=== PATIENT | male | born 1950 | race Caucasian/White ===

== ENCOUNTER → 2019-01-25 | Outpatient (CLI) | payer MEDICARE, OTHER ==
[~2019-01-25] MED LIST: MULT-974 PO; SIMV10TA3 PO; TRM50T PO; UBID100C17 PO
--- NOTE | 2019-01-25 16:16 | Diagnostic Imaging Report ---
INDICATION: Left knee pain. COMPARISON: None. FINDINGS: Three radiographic views of the left knee were obtained and show no radiographic evidence of acute fracture or dislocation. Osseous structures are intact. Joint spaces are maintained. There are mild osteoarthritic changes consisting of joint space narrowing with osteophyte formations, greatest involving the medial tibiofemoral compartment and patellar trochlear joint. Small suprapatellar joint effusion is also noted. No unexpected radiopaque foreign bodies are seen. IMPRESSION: 1. Small suprapatellar joint effusion with mild osteoarthritic changes, but no evidence of acute fracture or dislocation of the left knee. Dictated by: Dictated on workstation # [id number]
== END ==
LOC: RAD 14:29
PROVIDERS: ATTEND Nurse Practitioner Family
DX: M17.12 Unilateral primary osteoarthritis, left knee (principal)
CPT/HCPCS: 73562

== ENCOUNTER → 2019-03-02 | Outpatient (CLI) | payer MEDICARE, OTHER ==
--- NOTE | 2019-03-02 13:00 | Diagnostic Imaging Report ---
EXAMINATION: Lumbar spine at 11:17 a.m. INDICATION: Back pain. AP, lateral, and spot lateral views were obtained. There are no prior studies available for comparison. FINDINGS: The lateral view shows that there is slight anterior translation of L4 with respect to L5. There is also mild narrowing of the disc spaces at every level. There is no fracture or acute bony abnormality evident. There is no sign of a paraspinal mass. The sacroiliac joints are symmetrical and within normal limits. IMPRESSION: 1. There is no evidence for an acute bony abnormality. 2. There is mild degenerative bony disease at L4-L5 and mild generalized degenerative disc disease throughout the lumbar spine. 3. If there is clinical concern regarding spinal stenosis or nerve root encroachment, then MRI would be recommended for further study. Dictated by: Dictated on workstation # [id number]
== END ==
LOC: RAD 10:56
PROVIDERS: ATTEND Family Medicine
DX: M47.817 Spondylosis without myelopathy or radiculopathy, lumbosacral region (principal); M51.36 Other intervertebral disc degeneration, lumbar region
CPT/HCPCS: 72100

== ENCOUNTER → 2020-08-13 | Outpatient (CLI) | payer MEDICARE, OTHER | LOC: CARD 10:43 | PROVIDERS: ATTEND Internal Medicine Cardiovascular Disease | DX: I11.9 Hypertensive heart disease without heart failure (principal); R94.31 Abnormal electrocardiogram [ECG] [EKG] | CPT/HCPCS: 93306 ==

== ENCOUNTER → 2020-08-14 | Outpatient (CLI) | payer MEDICARE, OTHER ==
[~2020-08-14] VITALS: Ht 195 cm; Wt 110.0 kg
[~2020-08-14] MED LIST changes: +CATHETER FLUSH 10 ML SYR IV PRN
[2020-08-14 08:48] VITALS: BP 130/78
--- NOTE | 2020-08-14 11:18 | Cardiology Stress Test Report ---
Stress Test Report Date of Procedure/Referring: Date of Procedure: Aug 14, 2020 PCP Ashok Sher MD Admitting Physician Gustavo Jimenez DO Indications: Hypertension Baseline Heart Rate: 64 Baseline Blood Pressure: Blood Pressure Systolic: 130 Blood Pressure Diastolic: 78 Vital Signs Date Time Temp Pulse Resp B/P (MAP) Pulse Ox O2 Delivery O2 Flow Rate FiO2 08/14/20 08:48 71 18 130/78 (95) 97 Room Air Baseline Vital Signs Vital Signs Date Time Temp Pulse Resp B/P (MAP) Pulse Ox O2 Delivery O2 Flow Rate FiO2 08/14/20 08:48 71 18 130/78 (95) 97 Room Air Baseline EKG: Baseline EKG: normal sinus rhythm Summary: After explaining the procedure and details to the patient, he signed the consent and was brought to the stress nuclear laboratory. Patient exercised on standard Marco Antonio protocol, EKG, heart rate and blood pressure were monitored continuously, resting and stress doses of radio tracer were injected, imaging was acquired and reviewed in the short axis, horizontal long axis and vertical long axis views Patient was able to exercise for a total of 7:30 minutes on Marco Antonio protocol, METs 9.1 Maximum heart rate 126 Maximum blood pressure 201/74 Stress EKG, Minimal nondiagnostic changes Recovery EKG, Return to baseline TID: 0.9 SSS: 1 SDS: 1 EF: 59 Conclusion: 1. Good exercise tolerance for a total 7 minutes 30 seconds on standard Marco Antonio protocol, 9.1 METs achieving 85 percent of maximum expected heart rate 2. Appropriate heart rate response to exercise with hypertensive response to exercise peak blood pressure 201/74 return to baseline during recovery 3. Minimal nondiagnostic EKG changes with exercise returned to baseline during recovery 4. Diaphragmatic attenuation with no significant ischemia or infarction on SPECT images 5. Normal left ventricular size, EF 59 percent ASHOK SHER MD Aug 14, 2020 11:18
== END ==
LOC: CARD 07:45
PROVIDERS: ATTEND Internal Medicine Cardiovascular Disease
DX: I10 Essential (primary) hypertension (principal); R94.31 Abnormal electrocardiogram [ECG] [EKG]
CPT/HCPCS: 78452; 93017; A9502